=== PATIENT | male | born 1950 | race Caucasian/White ===

== ENCOUNTER → 2016-10-07 | Day surgery (SDC) | payer MEDICARE, OTHER ==
[~2016-10-07] MED LIST: ACETAMINOPHEN PO; APRESOLINE PO; ASPIRIN PO; CELEXA PO; CITALOPRAM HBR40 M1 PO; FLOMAX0.4 M1 PO; FLOMAX0.4 MG PO; HYDRALAZINE HCL50 MG PO; IBUPROFEN PO; LO-DOSE ASPIRIN81 M1 PO; LOC PO; LOTRISONE CREAM45 GM TOP; METROPROLOL; NAPROSYN-EC500 M1 PO; NORVASC PO; OMEPRAZOLE20 M1 PO; PHENERGAN PO; PHOSLO667 MG PO; PREDNISONE PO; PROTONIX PO; TOPROL XL 50 MG50 MG PO; TOPROL XL PO; [UNRECOGNIZED DRUG - OTHER]
--- NOTE | ~2016-10-07 | OR ---
Unit #: [id number] #: [id number] Patient: NITZA HURTADO [id number] [address] [place], [place] [address] [id number] MR#: [id number] NAME: NITZA HURTADO. ROOM: Date of Procedure: 10/07/2016 Admission Date: 10/07/2016 Surgeon: Matt Scott M.D. : 1950 Attending Physician: Matt Scott M.D. Referring Physician: Matt Scott M.D. Primary Care Physician: Bryce Todd M.D. OPERATIVE REPORT PREOPERATIVE DIAGNOSIS Anemia. POSTOPERATIVE DIAGNOSIS Anemia. PROCEDURES PERFORMED 1. Esophagogastroduodenoscopy. 2. Colonoscopy to cecum. ANESTHESIA Monitored anesthesia care. FINDINGS The patient was found to have a small hiatal hernia, occasional sigmoid diverticula, mild internal hemorrhoids. SPECIMENS None. COMPLICATIONS None apparent. CONDITION The patient tolerated the procedure well. INDICATIONS FOR PROCEDURE The patient is a 65-year-old white male, who presents at this time with a diagnosis of anemia. He presents at this time for evaluation by upper and lower endoscopy. DESCRIPTION OF PROCEDURE After obtaining informed consent, the patient was brought to the endoscopy suite. After adequate monitored anesthesia care, had the endoscope placed through the mouth into the upper esophagus under direct vision. It was advanced to the second portion of the duodenum without difficulty with the lumen always in view. The duodenum was normal as was the duodenal bulb. The pylorus opened normally. There was no abnormality in the antrum and on retroflexion back to the GE junction, the patient was found to have a small hiatal hernia. No other abnormalities were found in the proximal third, middle third, or incisura. On pulling back above the GE junction, there was no stenosis, stricture, or neoplasm seen. There was no Unit #: [id number] #: [id number] Patient: NITZA HURTADO significant esophagitis. The remaining portion of the esophagus was within normal limits. Laryngeal structures were grossly normal as viewed from above. At this point in time, the colonoscope was placed through the anus and slowly advanced to the level of the cecum without difficulty with the lumen always in view. The cecum was normal as was the ileocecal valve. The ascending colon was normal as was the hepatic flexure, transverse colon, splenic flexure, and descending colon. In the sigmoid colon, there were few sigmoid diverticula seen. The rectosigmoid and rectum were all within normal limits. On retroflexing in the rectum to the anorectal junction, the patient was found to have some mild internal hemorrhoids. The scope was removed without difficulty. The patient tolerated the procedure well and went from the endoscopy suite to the recovery area in stable condition. RECOMMENDATIONS High-fiber diet, lots of liquids, tucks or wipes p.r.n. Diverticular sheet given. Gastroesophageal reflux sheet given. Dictated by... Trixie Rodriguez/star TD: 10/08/2016 04:46 JOB #: [id number] CC: [facility] OPERATIVE REPORT Page 1 of 1 X Matt Scott MD X PROCEDURE OPERATIVE NOTE
== END | disposition home or self-care (01) ==
LOC: COPS 09-30 13:00
DX: D64.9 Anemia, unspecified (principal); K57.30 Diverticulosis of large intestine without perforation or abscess without bleeding; K44.9 Diaphragmatic hernia without obstruction or gangrene; K64.8 Other hemorrhoids; I10 Essential (primary) hypertension; K21.9 Gastro-esophageal reflux disease without esophagitis; N40.1 Benign prostatic hyperplasia with lower urinary tract symptoms; G47.30 Sleep apnea, unspecified; R35.0 Frequency of micturition; Z87.01 Personal history of pneumonia (recurrent); Z79.82 Long term (current) use of aspirin; Z79.1 Long term (current) use of non-steroidal anti-inflammatories (NSAID); Z79.899 Other long term (current) drug therapy; Z96.612 Presence of left artificial shoulder joint; Z96.611 Presence of right artificial shoulder joint; Z98.890 Other specified postprocedural states